=== PATIENT | female | born 1940 | race Caucasian/White ===

== ENCOUNTER 2016-12-01 07:30 | Outpatient (CLI) | payer MEDICARE, BC | END 2016-12-01 07:31 | disposition home or self-care (01) | DX: I10 Essential (primary) hypertension (principal); E55.9 Vitamin D deficiency, unspecified; K21.9 Gastro-esophageal reflux disease without esophagitis; H81.09 Meniere's disease, unspecified ear; I49.3 Ventricular premature depolarization ==

== ENCOUNTER 2017-08-09 16:48 | Outpatient (CLI) | payer MEDICARE, BC | END 2017-08-09 16:49 | disposition home or self-care (01) | LOC: LAB.R 16:48 | PROVIDERS: ATTEND Family Medicine | DX: N39.0 Urinary tract infection, site not specified (principal) | CPT/HCPCS: 87077; 87086 ==

== ENCOUNTER 2017-09-27 23:41 | Emergency (ER) | payer MEDICARE, BC ==
--- NOTE | 2017-09-28 00:09 | ED Physician Documentation ---
PD HPI ABD PAIN - Stated complaint Stated Complaint: ABD PAIN - Chief complaint Chief Complaint: Abd Pain - History obtained from History obtained from: Patient, Friend - History of Present Illness Timing - onset: Yesterday Timing - details: Gradual onset, Still present Quality: Cramping Worsened by: Eating, Position Associated symptoms: Vomiting, Diarrhea, Constipation Similar symptoms before: Work up / diagnostics, Treatment Recently seen: Clinic - Additional information Additional information: Patient is a 77 year old female who is presenting to the emergency department for abdominal discomfort. Patient states that she did not have a bowel movement today, and normally she goes twice a day. patient went to see her pmd who broke up some hard stool. Patient reports taking mag citrate, and tried to give herself an enema. Patient states that she had some liquid stools but no hard stools. patient did have a hysterectomy and and appendectomy. Review of Systems Constitutional: denies: Fever, Chills Eyes: reports: Reviewed and negative Ears: reports: Reviewed and negative Nose: reports: Reviewed and negative Throat: reports: Reviewed and negative Cardiac: denies: Chest pain / pressure, Palpitations Respiratory: denies: Dyspnea, Cough GI: reports: Abdominal Pain, Nausea, Vomiting, Constipation, Diarrhea : denies: Dysuria, Frequency Skin: denies: Rash, Lesions Immunocompromised: denies: Immunocompromised PD PAST MEDICAL HISTORY - Past Medical History Cardiovascular: Hypertension GI: GERD - Past Surgical History Past Surgical History: Yes General: Appendectomy Ortho: Shoulder arthroplasty - Present Medications Home Medications: Ambulatory Orders Medication Instructions Recorded Confirmed Cetirizine HCl [Zyrtec] 10 mg PO DAILY 06/29/13 09/28/17 Esomeprazole Magnesium [Nexium] 40 mg PO DAILY 06/29/13 09/28/17 Pramoxine HCl/Mineral Oil/Znox 28.3 gm RC Q6-8H PRN #0 oint...g. 06/29/13 [Tucks Hemorrhoidal Ointment] hydroCHLOROthiazide [Hydrodiuril] 12.5 mg PO DAILY 06/29/13 09/28/17 Clindamycin [Cleocin] 2 tab PO QID 09/28/17 09/28/17 Docusate Sodium Oral Soln [Colace] 100 mg PO BID PRN 09/28/17 09/28/17 Losartan Potassium [Cozaar] 1 tab PO DAILY 09/28/17 09/28/17 Ondansetron Odt [Zofran] 4 mg TL Q6H PRN #14 tablet 09/28/17 - Allergies Allergies/Adverse Reactions: Allergies Allergy/AdvReac Type Severity Reaction Status Date / Time Cephalosporins Allergy anaphylais Verified 06/29/13 11:55 codeine [Codeine] AdvReac altered LOC Verified 06/29/13 11:55 - Social History Does the pt smoke?: No Smoking Status: Never smoker Does the pt drink ETOH?: Yes Does the pt have substance abuse?: No PD ED PE NORMAL - Vitals Vital signs reviewed: Yes - General General: Alert and oriented X 3, No acute distress, Well developed/nourished - HEENT HEENT: Atraumatic, PERRL - Neck Neck: Supple, no meningeal sign - Cardiac Cardiac: RRR, No murmur - Respiratory Respiratory: No respiratory distress - Abdomen Abdomen: Soft, Non distended - Derm Derm: Normal color, Warm and dry - Extremities Extremities: No deformity, No edema - Neuro Neuro: Alert and oriented X 3, No motor deficit, No sensory deficit - Psych Psych: Normal mood PD ED PE EXPANDED - HEENT HEENT: Dry mucous membranes - Rectal Rectal: Hemorrhoid (multiple and extensive internal and external hemorrhoids ) Results - Vitals Vitals: Vital Signs - 24 hr 09/27/17 23:45 Temperature 36.8 C Heart Rate 89 Respiratory 18 Rate Blood Pressure 165/63 H O2 Saturation 96 Oxygen O2 Source Room air PD MEDICAL DECISION MAKING - ED course Complexity details: reviewed old records, reviewed results, re-evaluated patient , considered differential, d/w patient ED course: Patient was seen and examined at bedside. abd series was ordered. rectal exam was performed but there were no stool in the rectal vault. Patient had two episodes of emesis, and since the x-ray was inconclusive CT was ordered. Patient was treated with zofran. When patient returned from imaging the results were reviewed. Patient's findings were consistent with gastroenteritis. Patient required no further work up and was stable for discharge with outpatient follow up. Departure - Departure Disposition: 01 Home, Self Care Clinical Impression: Gastroenteritis Condition: Good Instructions: ED Gastroenteritis Viral Follow-Up: David Noriega MD [Primary Care Provider] - Within 3 Days Prescriptions: Ondansetron Odt [Zofran] 4 mg TL Q6H PRN #14 tablet PRN Reason: Nausea / Vomiting Comments: Your diagnostics today were consistent with gastroenteritis. It is normally self limited and should get better over the next few days. You should take the zofran for nausea and make sure you stay well hydrated. You should follow up with your doctor if your symptoms persist for more than the next 3-4 days.
--- NOTE | 2017-09-28 00:42 | XRAY Preliminary Report ---
Exam: XR ABDOMEN ACUTE IMPRESSION: 1. Suspect COPD without acute process seen in the chest. 2. Nonspecific air-fluid levels on the upright view, can be seen with obstruction, gastritis, and nor mal variant. 3. No gross large stool burden. [facility] SITE ID: [id number]
--- NOTE | 2017-09-28 00:49 | XRAY Report ---
EXAM: ABDOMINAL SERIES AND PA CHEST EXAM DATE: 09/28/2017 12:18 AM. CLINICAL HISTORY: Constipation, prior bowel surgeries. COMPARISON: CT 06/29/2013. TECHNIQUE: 2 views abdomen and 1 view chest. FINDINGS: CHEST: Lungs/Pleura: Large volumes. No focal opacities. No effusion or pneumothorax. Mediastinum: Within exam limitations, cardiomediastinal contour is normal. ABDOMEN: Bowel Gas Pattern: Nonspecific scattered air-fluid levels on the upright view. No definitive obstruct ion or gross bowel wall thickening. No large stool burden seen. Free Air: None. Other: Breast implants. IMPRESSION: 1. Suspect COPD without acute process seen in the chest. 2. Nonspecific air-fluid levels on the upright view, can be seen with obstruction, gastroenteritis, a nd normal variant. 3. No gross large stool burden. [facility] Referring Provider Line: [phone] SITE ID: [id number]
[2017-09-28] MEDS ORDERED: ONDANSETRON ODT 4 MG TABLET TL STA (01:37)
[2017-09-28] MEDS ORDERED: ONDANSETRON ODT 4 MG TABLET ONE (01:46)
--- NOTE | 2017-09-28 01:57 | CT Preliminary Report ---
Exam: CT ABDOMEN/PELVIS W/O IMPRESSION: 1. No renal stone disease or evidence of obstructive uropathy. 2. Findings most suggestive of a low-grade gastroenteritis. 3. Concomitant proctitis, unclear if this is related to previous constipation as per history. No sign ificant stool burden currently. No evidence of gross rectal perforation. 4. Mild colonic diverticulosis. [facility] SITE ID: [id number]
--- NOTE | 2017-09-28 02:06 | CT Report ---
EXAM: CT ABDOMEN AND PELVIS (CT KUB) EXAM DATE: 09/28/2017 01:37 AM. CLINICAL HISTORY: Constipation, vomiting, equivocal x-ray. COMPARISONS: 06/29/2013. TECHNIQUE: Routine axial helical CT imaging was performed through the abdomen and pelvis without IV c ontrast. No IV contrast per physician order. Interpreting radiologist not involved with protocoling t his study. Reconstructions: Coronal and sagittal. In accordance with CT protocol optimization, one or more of the following dose reduction techniques w ere utilized for this exam: automated exposure control, adjustment of mA and/or KV based on patient s ize, or use of iterative reconstructive technique. FINDINGS: Lung Bases: Unremarkable. Right Kidney/Ureter: No stones, hydronephrosis, or hydroureter. No perinephric fat stranding. Left Kidney/Ureter: No stones, hydronephrosis, or hydroureter. No perinephric fat stranding. Other Solid Organs: Noncontrast images of the solid organs are grossly unremarkable. Gallbladder/Bile Ducts: Unremarkable. Peritoneal Cavity: Fluid-filled nondistended small and large bowel. No gross focal abnormality seen i nvolving the small or large bowel with the exception of rectal inflammation. Perirectal edema without gross perforation seen. No evidence of bowel obstruction. No abscess seen. Mild colonic diverticulosis. Pelvic Organs: Post hysterectomy with no adnexal masses seen. The bladder appears within normal limit s. Vasculature: Unremarkable. Other: None. IMPRESSION: 1. No renal stone disease or evidence of obstructive uropathy. 2. Findings most suggestive of a low-grade gastroenteritis. 3. Concomitant proctitis, unclear if this is related to previous constipation as per history. No sign ificant stool burden currently. No evidence of gross rectal perforation. 4. Mild colonic diverticulosis. [facility] Referring Provider Line: [phone] SITE ID: [id number]
[2017-09-28 02:17] VITALS: BP 144/76
== END 2017-09-28 02:17 | disposition home or self-care (01) ==
LOC: ED 23:41
DX: K52.9 Noninfective gastroenteritis and colitis, unspecified (principal); K64.4 Residual hemorrhoidal skin tags; K64.8 Other hemorrhoids; I10 Essential (primary) hypertension
CPT/HCPCS: 74022; 74176; 99283; Q0162

== ENCOUNTER 2018-04-22 08:00 | Outpatient (CLI) | payer MEDICARE, BC ==
[2018-04-22 13:41] LABS: BASOPHILS # (AUTO) 0.1 10^3/uL (0.0-0.1); EOSINOPHILS # (AUTO) 0.1 10^3/uL (0.0-0.7); EOSINOPHILS % (AUTO) 1.1 %; HGB - HEMOGLOBIN 13.1 g/dL (12.0-16.0); LYMPHOCYTES # (AUTO) 1.6 10^3/uL (1.5-3.5); LYMPHOCYTES % (AUTO) 22.4 %; MEAN CORPUSCULAR HEMOGLOBIN 30.5 pg (27.0-31.0); MEAN CORPUSCULAR HGB CONC 33.6 g/dL (32.0-36.0); MEAN CORPUSCULAR VOLUME 90.8 fL (81.0-99.0); MEAN PLATELET VOLUME 8.3 fL (7.9-10.8); MONOCYTES # (AUTO) 0.6 10^3/uL (0.0-1.0); MONOCYTES % (AUTO) 8.9 %; NEUTROPHILS # (AUTO) 4.8 10^3/uL (1.5-6.6); NEUTROPHILS % (AUTO) 66.6 %; PLT - PLATELET COUNT 291 10^3/uL (130-450); RED BLOOD COUNT 4.31 10^6/uL (4.20-5.40); RED CELL DISTRIBUTION WIDTH 14.5 % (12.0-15.0); WHITE BLOOD COUNT 7.2 x10^3/uL (4.8-10.8)
[2018-04-22 14:01] LABS: ALBUMIN 3.9 g/dL (3.2-5.5); ALBUMIN/GLOBULIN RATIO 1.1 (1.0-2.2); ALKALINE PHOSPHATASE 93 IU/L (42-121); ALT ALANINE AMINOTRANSFERASE 14 IU/L (10-60); AST ASPARTATE AMINOTRANSFERASE 21 IU/L (10-42); BILIRUBIN,TOTAL 0.6 mg/dL (0.2-1.0); BUN - BLOOD UREA NITROGEN 14 mg/dL (6-20); CALCIUM 9.4 mg/dL (8.5-10.3); CARBON DIOXIDE - CO2 26 mmol/L (21-32); CHLORIDE 98 mmol/L (101-111); CREATININE 0.7 mg/dL (0.4-1.0); GFR - MDRD 81 (>89); GLUCOSE 96 mg/dL (70-100); SODIUM 133 mmol/L (135-145); TOTAL PROTEIN 7.6 g/dL (6.7-8.2)
[2018-04-22 14:10] LABS: CRP - C-REACTIVE PROTEIN < 1.0 mg/dL (0-1.0)
== END 2018-04-22 08:01 | disposition home or self-care (01) ==
LOC: LAB.WCP 08:00
PROVIDERS: ATTEND Family Medicine
DX: R51 Headache (principal)
CPT/HCPCS: 36415; 80053; 85025; 85651; 86140

== ENCOUNTER 2018-04-22 09:46 | Outpatient (CLI) | payer MEDICARE, BC | END 2018-04-22 09:47 | disposition home or self-care (01) | LOC: LAB.WCP 09:46 | PROVIDERS: ATTEND Family Medicine | DX: Z53.9 Procedure and treatment not carried out, unspecified reason (principal) ==

== ENCOUNTER 2018-05-14 14:49 | Outpatient (CLI) | payer MEDICARE, BC ==
--- NOTE | 2018-05-14 15:34 | CT Report ---
Procedure Date: 05/14/2018 Accession Number: [id number] / [id number] Procedure: CT - Sinuses CPT Code: FULL RESULT: EXAM: Sinuses DATE: 05/14/2018 3:03 PM CLINICAL HISTORY: FACIAL PAIN COMPARISON: None. TECHNIQUE: Routine multi-axial CT imaging performed through the sinuses. Iodinated IV contrast: None. Reconstructions: Coronal and sagittal. In accordance with CT protocol optimization, one or more of the following dose reduction techniques were utilized for this exam: automated exposure control, adjustment of mA and/or KV based on patient size, or use of iterative reconstructive technique. FINDINGS: RIGHT Frontal: Normal. Ethmoid: Normal. Maxillary: Normal. Sphenoid: Normal. Drainage Pathways: The frontal recess, ostiomeatal complex and sphenoethmoidal recess are patent and normal. LEFT Frontal: Normal. Ethmoid: Patchy mucosal thickening. Maxillary: Near complete opacification. Sphenoid: Normal. Drainage Pathways: The ostiomeatal complex is occluded by soft tissue. The frontal recess and sphenoethmoidal recess are patent. Nasal Cavity: Normal. No mass or significant anatomic abnormality evident. Osseous Structures: Normal. Orbits: Unremarkable. Other: None. IMPRESSION: Left maxillary and ethmoid chronic sinus disease. [facility]
== END 2018-05-14 14:50 | disposition home or self-care (01) ==
LOC: DI 14:49
PROVIDERS: ATTEND Family Medicine
DX: R51 Headache (principal); J32.0 Chronic maxillary sinusitis; J32.2 Chronic ethmoidal sinusitis
CPT/HCPCS: 70486

== ENCOUNTER 2018-06-11 10:20 | Outpatient (CLI) | payer MEDICARE, BC ==
[2018-06-11 18:52] LABS: BASOPHILS # (AUTO) 0.1 10^3/uL (0.0-0.1); EOSINOPHILS % (AUTO) 0.5 %; HGB - HEMOGLOBIN 13.6 g/dL (12.0-16.0); LYMPHOCYTES # (AUTO) 1.8 10^3/uL (1.5-3.5); LYMPHOCYTES % (AUTO) 24.5 %; MEAN CORPUSCULAR HEMOGLOBIN 29.9 pg (27.0-31.0); MEAN CORPUSCULAR HGB CONC 32.9 g/dL (32.0-36.0); MEAN PLATELET VOLUME 7.6 fL (7.9-10.8); MONOCYTES # (AUTO) 0.6 10^3/uL (0.0-1.0); MONOCYTES % (AUTO) 7.5 %; NEUTROPHILS # (AUTO) 4.9 10^3/uL (1.5-6.6); NEUTROPHILS % (AUTO) 66.5 %; PLT - PLATELET COUNT 377 10^3/uL (130-450); RED BLOOD COUNT 4.53 10^6/uL (4.20-5.40); RED CELL DISTRIBUTION WIDTH 14.3 % (12.0-15.0); WHITE BLOOD COUNT 7.4 x10^3/uL (4.8-10.8)
[2018-06-11 19:12] LABS: CALCIUM 9.4 mg/dL (8.5-10.3); CREATININE 0.7 mg/dL (0.4-1.0)
== END 2018-06-11 10:21 | disposition home or self-care (01) ==
LOC: LAB.WCP 10:20
PROVIDERS: ATTEND Family Medicine
DX: I10 Essential (primary) hypertension (principal); K62.5 Hemorrhage of anus and rectum
CPT/HCPCS: 36415; 80048; 85025

== ENCOUNTER 2019-01-17 17:00 | Emergency (ER) | payer MEDICARE, BC ==
--- NOTE | 2019-01-17 18:13 | XRAY Report ---
Reason: dyspnea Procedure Date: 01/17/2019 Accession Number: [id number] / [id number] Procedure: XR - Chest 2 View X-Ray CPT Code: 82207 FULL RESULT: EXAM: CHEST RADIOGRAPHY EXAM DATE: 01/17/2019 05:55 PM. CLINICAL HISTORY: Shortness of breath. COMPARISON: ABDOMEN ACUTE 09/27/2017 11:55 PM. TECHNIQUE: 2 views. FINDINGS: Lungs/Pleura: No focal opacities evident. No pleural effusion. No pneumothorax. Normal volumes. Mediastinum: Heart and mediastinal contours are unremarkable. Other: Calcified breast implants are seen in place. IMPRESSION: No acute cardiopulmonary abnormality demonstrated. [facility]
[2019-01-17] MEDS ORDERED: ALBUTEROL NEB 2.5 MG/3 ML INH STA (20:12)
[2019-01-17 20:46] LABS: BASOPHILS % (AUTO) 0.2 %; EOSINOPHILS # (AUTO) 0.1 10^3/uL (0.0-0.7); EOSINOPHILS % (AUTO) 1.6 %; LYMPHOCYTES # (AUTO) 1.9 10^3/uL (1.5-3.5); LYMPHOCYTES % (AUTO) 21.9 %; MEAN CORPUSCULAR HEMOGLOBIN 30.7 pg (27.0-31.0); MEAN CORPUSCULAR HGB CONC 34.7 g/dL (32.0-36.0); MEAN CORPUSCULAR VOLUME 88.4 fL (81.0-99.0); MEAN PLATELET VOLUME 6.8 fL (7.9-10.8); MONOCYTES # (AUTO) 0.9 10^3/uL (0.0-1.0); MONOCYTES % (AUTO) 10.5 %; NEUTROPHILS # (AUTO) 5.8 10^3/uL (1.5-6.6); NEUTROPHILS % (AUTO) 65.8 %; PLT - PLATELET COUNT 407 10^3/uL (130-450); RED BLOOD COUNT 3.92 10^6/uL (4.20-5.40); WHITE BLOOD COUNT 8.9 x10^3/uL (4.8-10.8)
[2019-01-17] MEDS ORDERED: IOPAMIDOL-300 100 ML VIAL ONE (20:59)
[2019-01-17 21:00] LABS: ALBUMIN 3.8 g/dL (3.2-5.5); BILIRUBIN,TOTAL 0.7 mg/dL (0.2-1.0); CALCIUM 8.9 mg/dL (8.5-10.3); CREATININE 0.7 mg/dL (0.4-1.0); TOTAL PROTEIN 7.7 g/dL (6.7-8.2)
--- NOTE | 2019-01-17 21:38 | CT Report ---
Reason: SOA Procedure Date: 01/17/2019 Accession Number: [id number] / [id number] Procedure: CT - ANGIO CHEST W/WO CPT Code: FULL RESULT: EXAM: CT ANGIOGRAM CHEST EXAM DATE: 01/17/2019 09:25 PM. CLINICAL HISTORY: Shortness of breath for 2 days. COMPARISON: None. TECHNIQUE: Routine helical imaging was performed through the chest in the pulmonary arterial phase. IV Contrast: 65 cc of Isovue 300. Reconstructions: Coronal 3-D MIP reconstructions.Sagittal and coronal. In accordance with CT protocol optimization, one or more of the following dose reduction techniques were utilized for this exam: automated exposure control, adjustment of mA and/or KV based on patient size, or use of iterative reconstructive technique. FINDINGS: Pulmonary Arteries: Diagnostic quality: Adequate through the segmental arteries. No evidence for acute or chronic pulmonary emboli. RV/LV is within normal limits. There is no interventricular septal bowing. There is no reflux of contrast material in the IVC. Lungs/Pleura: Mild scarring in the apices. No consolidation, nodules, or edema. No effusions or pneumothorax. Mediastinum: Mild aortic and coronary artery calcification. No cardiac enlargement or adenopathy. Thoracic Aorta: Unremarkable. Upper Abdomen: Unremarkable. Other: None. IMPRESSION: 1. No pulmonary emboli. 2. No aortic aneurysm or dissection. 3. Clear lungs. [facility]
[2019-01-17] MEDS ORDERED: IOPAMIDOL-300 100 ML VIAL IVP ONE (21:45)
--- NOTE | 2019-01-17 22:05 | ED Physician Documentation ---
History of Present Illness - Stated complaint Stated Complaint: SOA - Chief complaint Chief Complaint: General - Additonal information Additional information: 78-year-old female presents emergency department with ongoing shortness of breath. The patient reports not been able to take a deep breath in and feels short of breath. The patient denies peripheral edema, chest pain, URI symptoms, fevers or chills. The patient has been experiencing musculoskeletal back pain was started on Flexeril by her primary care. The patient denies abdominal pain, dysuria, hematuria, fever, saddle anesthesia or motor or sensory changes. Symptoms are described as moderate. No triggering factors. No relieving factors. Review of Systems Constitutional: denies: Fever, Chills Eyes: denies: Discharge Ears: denies: Ear pain Nose: denies: Congestion Throat: denies: Sore throat Cardiac: denies: Chest pain / pressure Respiratory: reports: Dyspnea. denies: Cough, Hemoptysis GI: denies: Abdominal Pain : denies: Dysuria, Incontinent, Hematuria Musculoskeletal: denies: Extremity swelling Neurologic: denies: Focal weakness, Numbness, Difficulty speaking PD PAST MEDICAL HISTORY - Past Medical History Past Medical History: Yes Cardiovascular: Hypertension Respiratory: None Neuro: None Endocrine/Autoimmune: None GI: GERD CREDIT REPORT CHECKER: None : None HEENT: None Psych: None Musculoskeletal: None Derm: None - Past Surgical History Past Surgical History: Yes General: Appendectomy Ortho: Shoulder arthroplasty /CREDIT REPORT CHECKER: 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 - Present Medications Home Medications: Ambulatory Orders Medication Instructions Recorded Confirmed Cetirizine HCl [Zyrtec] 10 mg PO DAILY 06/29/13 09/28/17 Esomeprazole Magnesium [Nexium] 40 mg PO DAILY 06/29/13 09/28/17 Pramoxine HCl/Mineral Oil/Znox 28.3 gm RC Q6-8H PRN #0 oint...g. 06/29/13 09/28/17 [Tucks Hemorrhoidal Ointment] hydroCHLOROthiazide [Hydrodiuril] 12.5 mg PO DAILY 06/29/13 09/28/17 Clindamycin [Cleocin] 2 tab PO QID 09/28/17 09/28/17 Docusate Sodium Oral Soln [Colace] 100 mg PO BID PRN 09/28/17 09/28/17 Losartan Potassium [Cozaar] 1 tab PO DAILY 09/28/17 09/28/17 Ondansetron Odt [Zofran] 4 mg TL Q6H PRN #14 tablet 09/28/17 - Allergies Allergies/Adverse Reactions: Allergies Allergy/AdvReac Type Severity Reaction Status Date / Time Cephalosporins Allergy anaphylais Verified 01/17/19 17:14 codeine [Codeine] AdvReac altered LOC Verified 01/17/19 17:14 - Social History Does the pt smoke?: No Smoking Status: Never smoker Does the pt drink ETOH?: Yes Does the pt have substance abuse?: No - Immunizations Immunizations are current?: Yes - POLST Patient has POLST: No PD ED PE NORMAL - General General: Alert and oriented X 3, No acute distress - HEENT HEENT: Atraumatic, PERRL, EOMI, Ears normal - Neck Neck: Supple, no meningeal sign - Cardiac Cardiac: RRR, Strong equal pulses - Respiratory Respiratory: No respiratory distress, Clear bilaterally - Abdomen Abdomen: Soft, Non tender - Derm Derm: Normal color - Extremities Extremities: No deformity, Normal ROM s pain - Neuro Neuro: Alert and oriented X 3, Normal speech - Psych Psych: Normal affect Results - Vitals Vitals: Vital Signs - 24 hr 01/17/19 01/17/19 01/17/19 17:11 17:34 19:33 Temperature 37.1 C 36.6 C Heart Rate 87 80 Respiratory 20 18 Rate Blood Pressure 149/77 H 135/60 H O2 Saturation 98 99 01/17/19 01/17/19 01/17/19 20:41 20:50 21:05 Temperature 36.8 C Heart Rate 77 79 82 Respiratory 17 13 16 Rate Blood Pressure 162/76 H 152/67 H O2 Saturation 99 152 H Oxygen O2 Source Room air - EKG (time done) 20:21 Rate: Rate (enter#) Rhythm: NSR Intervals: Normal WA, QRS normal QRS: Normal Ischemia: Normal ST segments - Labs Labs: Laboratory Tests 01/17/19 01/17/19 01/17/19 20:35 20:35 20:35 WBC 8.9 RBC 3.92 L Hgb 12.0 Hct 34.6 L MCV 88.4 MCH 30.7 MCHC 34.7 RDW 14.0 Plt Count 407 MPV 6.8 L Neut # (Auto) 5.8 Lymph # (Auto) 1.9 Dubois # (Auto) 0.9 Eos # (Auto) 0.1 Baso # (Auto) 0.0 Absolute Nucleated RBC 0.00 Nucleated RBC % 0.0 Sodium 126 L Potassium 3.6 Chloride 91 L Carbon Dioxide 24 Anion Gap 11.0 BUN 11 Creatinine 0.7 Estimated GFR (MDRD) 81 L Glucose 98 Calcium 8.9 Total Bilirubin 0.7 AST 29 ALT 20 Alkaline Phosphatase 132 H Troponin I < 0.04 B-Natriuretic Peptide Total Protein 7.7 Albumin 3.8 Globulin 3.9 Albumin/Globulin Ratio 1.0 Lipase 39 01/17/19 20:35 WBC RBC Hgb Hct MCV MCH MCHC RDW Plt Count MPV Neut # (Auto) Lymph # (Auto) Dubois # (Auto) Eos # (Auto) Baso # (Auto) Absolute Nucleated RBC Nucleated RBC % Sodium Potassium Chloride Carbon Dioxide Anion Gap BUN Creatinine Estimated GFR (MDRD) Glucose Calcium Total Bilirubin AST ALT Alkaline Phosphatase Troponin I B-Natriuretic Peptide 80 Total Protein Albumin Globulin Albumin/Globulin Ratio Lipase - Rads (name of study) CTA chest Radiology: Final report received, See rad report (1. No pulmonary emboli. 2. No aortic aneurysm or dissection. 3. Clear lungs. ) CXR Radiology: Final report received, See rad report (IMPRESSION: No acute cardiopulmonary abnormality demonstrated. ) PD MEDICAL DECISION MAKING - ED course ED course: The patient's workup does not reveal a clear etiology for the source of her symptoms. Presently, the patient appears appropriate for discharge with ongoing outpatient management. The findings and plan were discussed the patient who understands and agrees. I discussed warning signs and recommended returning to the emergency department for any worsening or any concerns Departure - Departure Disposition: 01 Home, Self Care Clinical Impression: Dyspnea Qualifiers: Dyspnea type: unspecified Qualified Code(s): R06.00 - Dyspnea, unspecified Condition: Good Instructions: ED Dyspnea Shortness of Breath Comments: Please return to the emergency department for worsening symptoms or any concerns
[2019-01-17 22:49] VITALS: BP 133/78
== END 2019-01-17 22:40 | disposition home or self-care (01) ==
LOC: ED 17:00
DX: R06.00 Dyspnea, unspecified (principal); I10 Essential (primary) hypertension
CPT/HCPCS: 36415; 71046; 71275; 80053; 83690; 83880; 84484; 85025; 93005; 94640; 94664; 99283; 99284; Q9967

== ENCOUNTER 2019-01-21 10:28 | Outpatient (CLI) | payer MEDICARE, BC ==
--- NOTE | 2019-01-21 12:13 | XRAY Report ---
Reason: LUMBAR RADICULOPATHY Procedure Date: 01/21/2019 Accession Number: [id number] / [id number] Procedure: WCP - Lumbar Spine 2 View CPT Code: FULL RESULT: EXAM: LUMBOSACRAL SPINE RADIOGRAPHY EXAM DATE: 01/21/2019 10:45 AM. CLINICAL HISTORY: Lumbar radiculopathy. COMPARISONS: XR LUMBOSACRAL SPINE 4 VIEWS 06/20/2012 7:23 AM. TECHNIQUE: 2 views. FINDINGS: Alignment: There is a few degrees of levo-scoliotic curvature of the lumbar spine apex L3-L4. No anterolisthesis. Bones: Five [id number] lumbar vertebral bodies are present. No fractures or bone lesions. Disks: Interval development of mild degenerative disk space narrowing at L3-L4 and L5-S1 with mild anterior osteophyte. Facets: No degenerative changes. Sacroiliac Joints: Unremarkable. Soft Tissues: Normal. The visualized bowel gas pattern is normal. IMPRESSION: Mild degenerative disk changes as described. No fracture appreciated. [facility]
== END 2019-01-21 10:29 | disposition home or self-care (01) ==
LOC: DI.WCP 10:28
PROVIDERS: ATTEND Family Medicine
DX: M51.36 Other intervertebral disc degeneration, lumbar region (principal); M51.37 Other intervertebral disc degeneration, lumbosacral region
CPT/HCPCS: 72100

== ENCOUNTER 2019-02-25 10:57 | Outpatient (CLI) | payer MEDICARE, BC ==
--- NOTE | 2019-02-25 11:27 | XRAY Report ---
Reason: ANKLE PAIN,BILATERAL Procedure Date: 02/25/2019 Accession Number: [id number] / [id number] Procedure: WCP - Ankle 3 View BILAT CPT Code: FULL RESULT: EXAMS: 1. Right Ankle Radiography 2. Left Ankle Radiography EXAM DATE: 02/25/2019 11:19 AM. CLINICAL HISTORY: ANKLE Pain, bilateral. COMPARISON: None. TECHNIQUE: 3 views each ankle. FINDINGS: Right Ankle: Bones: Normal. No fractures or bone lesions. Joints: Normal. No effusion. No subluxations. The ankle mortise is normally aligned. Soft Tissues: Normal. No soft tissue swelling. Left Ankle: Bones: Normal. No fractures or bone lesions. Joints: Normal. No effusion. No subluxations. The ankle mortise is normally aligned. Soft Tissues: Normal. No soft tissue swelling. IMPRESSION: Normal bilateral ankle radiography. [facility]
== END 2019-02-25 10:58 | disposition home or self-care (01) ==
LOC: DI.WCP 10:57
PROVIDERS: ATTEND Family Medicine
DX: M25.571 Pain in right ankle and joints of right foot (principal); M25.572 Pain in left ankle and joints of left foot

== ENCOUNTER 2019-02-27 08:00 | Outpatient (CLI) | payer MEDICARE, BC | END 2019-02-27 23:59 | disposition home or self-care (01) | LOC: LAB.WCP 08:00 | PROVIDERS: ATTEND Family Medicine | DX: M25.571 Pain in right ankle and joints of right foot (principal); M25.572 Pain in left ankle and joints of left foot | CPT/HCPCS: 36415; 84550 ==

== ENCOUNTER 2019-03-04 08:00 | Outpatient (CLI) | payer MEDICARE, BC | END 2019-03-04 08:01 | disposition home or self-care (01) | LOC: LAB.R 08:00 | PROVIDERS: ATTEND Family Medicine | DX: R30.0 Dysuria (principal) | CPT/HCPCS: 87077; 87086; 87181 ==

== ENCOUNTER 2019-03-18 16:27 | Outpatient (CLI) | payer MEDICARE, BC ==
[2019-03-18] MEDS ORDERED: GADOBUTROL 7.5 MMOL/7.5 ML VIAL ONE (17:31)
[2019-03-18] MEDS ORDERED: GADOBUTROL 7.5 MMOL/7.5 ML VIAL IVP ONE (17:45)
--- NOTE | 2019-03-19 07:55 | MRI Report ---
Reason: APHASIA Procedure Date: 03/18/2019 Accession Number: [id number] / [id number] Procedure: MRI - Brain W/WO CPT Code: FULL RESULT: EXAM: MRI BRAIN WITHOUT AND WITH CONTRAST EXAM DATE: 03/18/2019 05:35 PM. CLINICAL HISTORY: 78-year-old woman with aphasia. COMPARISON: None. TECHNIQUE: Multiplanar, multisequence T1-weighted and fluid-sensitive MR sequences of the brain were performed. Sequences optimized for routine evaluation. Other: None. IV Contrast: 7.5 cc Gadavist. FINDINGS: Parenchyma: No evidence of acute infarct on diffusion weighted sequence. The parenchyma demonstrates mild burden of nonspecific FLAIR hyperintensities in the periventricular and deep cerebral white matter, less than commonly seen in this age group. No evidence of prior hemorrhage on susceptibility weighted sequence. No abnormal enhancement. Pituitary: Unremarkable. Ventricles and Extra-axial Spaces: Ventricles are symmetric and normal in size for age. Extra-axial spaces are unremarkable. No abnormal enhancement. Orbits: Unremarkable. Sinuses: Mucous retention cyst is present in the left frontal sinus. Mastoid air cells are clear. Major Vascular Flow Voids: Intact. Dural Venous Sinuses and Major Central Veins: Patent on post-contrast images. IMPRESSION: 1. No acute intracranial abnormality. Specifically, no evidence of acute infarct, hemorrhage, or mass lesion. 2. Mild white matter changes, less than commonly seen in this age group. [facility]
== END 2019-03-18 16:28 | disposition home or self-care (01) ==
LOC: DI 16:27
PROVIDERS: ATTEND Family Medicine
DX: R47.01 Aphasia (principal)
CPT/HCPCS: 70553; A9585

== ENCOUNTER 2019-06-30 08:00 | Outpatient (CLI) | payer MEDICARE, BC | END 2019-06-30 23:59 | disposition home or self-care (01) | LOC: LAB.WCP 08:00 | PROVIDERS: ATTEND Family Medicine | DX: R35.0 Frequency of micturition (principal) | CPT/HCPCS: 87086 ==

== ENCOUNTER 2020-01-14 16:30 | Outpatient (CLI) | payer MEDICARE, BC | END 2020-01-14 23:59 | disposition home or self-care (01) | LOC: LAB.R 16:30 | PROVIDERS: ATTEND Podiatrist | DX: L03.032 Cellulitis of left toe (principal) | CPT/HCPCS: 87070; 87205 ==

== ENCOUNTER 2020-12-01 08:00 | Outpatient (CLI) | payer MEDICARE, BC ==
[2020-12-01 12:37] LABS: ALBUMIN 4.6 g/dL (3.2-5.5); ALBUMIN/GLOBULIN RATIO 1.4 (1.0-2.2); ALKALINE PHOSPHATASE 93 IU/L (42-121); ALT ALANINE AMINOTRANSFERASE 20 IU/L (10-60); AST ASPARTATE AMINOTRANSFERASE 27 IU/L (10-42); BILIRUBIN,TOTAL 0.9 mg/dL (0.2-1.0); BUN - BLOOD UREA NITROGEN 15 mg/dL (6-20); CALCIUM 9.6 mg/dL (8.5-10.3); CARBON DIOXIDE - CO2 27 mmol/L (21-32); CHLORIDE 99 mmol/L (101-111); CHOL/HDL RATIO 1.9 (<4.4); CHOLESTEROL 169 mg/dL; CREATININE 0.8 mg/dL (0.4-1.0); GLUCOSE 83 mg/dL (70-100); HDL CHOLESTEROL 88 mg/dL; LDL CHOLESTEROL,CALCULATED 64 mg/dL; LDL/HDL RATIO 0.7 (<4.4); TOTAL PROTEIN 7.9 g/dL (6.7-8.2); VLDL CHOLESTEROL 17 mg/dL
[2020-12-01 12:52] LABS: BASOPHILS # (AUTO) 0.1 10^3/uL (0.0-0.1); BASOPHILS % (AUTO) 0.7 %; EOSINOPHILS # (AUTO) 0.5 10^3/uL (0.0-0.7); EOSINOPHILS % (AUTO) 6.9 %; HGB - HEMOGLOBIN 13.7 g/dL (12.0-16.0); LYMPHOCYTES # (AUTO) 1.5 10^3/uL (1.5-3.5); LYMPHOCYTES % (AUTO) 21.2 %; MEAN CORPUSCULAR HEMOGLOBIN 30.1 pg (27.0-31.0); MEAN CORPUSCULAR HGB CONC 32.6 g/dL (32.0-36.0); MEAN CORPUSCULAR VOLUME 92.3 fL (81.0-99.0); MONOCYTES # (AUTO) 0.7 10^3/uL (0.0-1.0); MONOCYTES % (AUTO) 9.5 %; NEUTROPHILS # (AUTO) 4.3 10^3/uL (1.5-6.6); NEUTROPHILS % (AUTO) 61.3 %; PLT - PLATELET COUNT 298 10^3/uL (130-450); RED BLOOD COUNT 4.55 10^6/uL (4.20-5.40); WHITE BLOOD COUNT 7.1 x10^3/uL (4.8-10.8)
== END 2020-12-01 23:59 | disposition home or self-care (01) ==
LOC: LAB.WCP 08:00
PROVIDERS: ATTEND Family Medicine
DX: I10 Essential (primary) hypertension (principal); E87.1 Hypo-osmolality and hyponatremia
CPT/HCPCS: 36415; 80053; 80061; 83721; 83930; 84300; 85025

== ENCOUNTER 2020-12-31 17:09 | Outpatient (CLI) | payer MEDICARE, BC ==
[2020-12-31 21:04] LABS: CALCIUM 9.8 mg/dL (8.5-10.3); CREATININE 0.9 mg/dL (0.4-1.0)
== END 2020-12-31 23:59 | disposition home or self-care (01) ==
LOC: LAB.N 17:09
PROVIDERS: ATTEND Family Medicine
DX: E87.6 Hypokalemia (principal); N39.0 Urinary tract infection, site not specified
CPT/HCPCS: 36415; 80048; 87077; 87086; 87181

== ENCOUNTER 2021-02-11 12:40 | Outpatient (CLI) | payer MEDICARE, BC ==
--- NOTE | 2021-02-11 15:23 | DEXA Report ---
PROCEDURE: Dexa Spine and/or Hip INDICATIONS: POST MENOPAUSAL TECHNIQUE: Dual energy x-ray absorptiometry (DXA) was performed on a [facility]. Regions measur ed are the AP Spine, femoral neck, and if needed forearm. COMPARISON: None. FINDINGS: Lumbar Spine: Bone Mineral Density 1.296 g/cm/cm,T score 1.0, normal Left Hip: Bone Mineral Density 0.954 g/cm/cm,T score -0.4, normal Left Femoral Neck: Bone Mineral Density 0.846 g/cm/cm, T score -1.4, osteopenia (T score greater or equal to -1.0: NORMAL) (T score from -1.1 to -2.4: OSTEOPENIA) (T score less than or equal to -2.5 to: OSTEOPOROSIS) Impression: Osteopenia. Patients with diagnosis of osteoporosis or osteopenia should have regular bone mineral density assess ment. For those eligible for Medicare, routine testing is allowed once every 2 years. Testing frequ ency can be increased for patients who have rapidly progressing disease or for those who are receivin g medical therapy to restore bone mass. Reviewed by: Marce Shoemaker MD, PhD on 02/11/2021 3:21 PM PDT Approved by: Marce Shoemaker MD, PhD on 02/11/2021 3:21 PM PDT Station ID: [id number]
== END 2021-02-11 12:41 | disposition home or self-care (01) ==
LOC: DI 12:40
PROVIDERS: ATTEND Family Medicine
DX: M85.88 Other specified disorders of bone density and structure, other site (principal); Z78.0 Asymptomatic menopausal state

== ENCOUNTER 2021-03-07 07:00 | Outpatient (CLI) | payer MEDICARE, BC ==
--- NOTE | 2021-03-07 16:02 | XRAY Report ---
PROCEDURE: Knee 3 View RT INDICATIONS: ARTHRITIS, R KNEE TECHNIQUE: 3 views of the right knee(s) were acquired. COMPARISON: None. FINDINGS: Bones: No fractures or dislocations. No suspicious bony lesions. Mild periarticular osteophyte form ation, indicating osteoarthritis. Soft tissues: No joint effusion. No suspicious soft tissue calcifications. IMPRESSION: Mild osteoarthritis. No acute fracture. No osseous lesion. If symptoms and/or clinical s uspicion for pathology continue, further assessment with repeat plain films, or advanced imaging (e.g ., CT, MRI, or bone scan) is recommended for further assessment. Reviewed by: Ronny Guajardo MD on 03/07/2021 4:01 PM PDT Approved by: Ronny Guajardo MD on 03/07/2021 4:01 PM PDT Station ID: [id number]
== END 2021-03-07 23:59 | disposition home or self-care (01) ==
LOC: DI.N 07:00
PROVIDERS: ATTEND Family Medicine
DX: M17.11 Unilateral primary osteoarthritis, right knee (principal)

== ENCOUNTER 2021-05-25 21:35 | Outpatient (CLI) | payer MEDICARE, BC | END 2021-05-25 21:36 | disposition critical access hospital (66) | LOC: EMS 21:35 | DX: R51.9 Headache, unspecified (principal); I10 Essential (primary) hypertension | CPT/HCPCS: A0425; A0429 ==

== ENCOUNTER 2021-05-25 21:50 | Emergency (ER) | payer MEDICARE, BC ==
--- NOTE | 2021-05-25 21:52 | ED Physician Documentation ---
History of Present Illness - Stated complaint Stated Complaint: AGUIRRE/HIGH BP...FORGOT TO TAKE MEDS YESTERDAY - History obtained from History obtained from: Patient, EMS - History of Present Illness Timing: Today Pain level now: 5 Improved by: nothing Worsened by: no exacerbating factors - Additonal information Additional information: BIBA. Patient c/o generalized headache "all day". She took her regular prescribed medications this morning but realized she had forgotten to take her medications yesterday. Tonight she noticed she had a flushed appearance in her bathroom mirror and, with the headache and having forgotten to take her medications yesterday, it occurred to her to check her blood pressure. She found it to be 199/102. She took a half-dose of her losartan and then called 911. Review of Systems Constitutional: denies: Fever, Chills, Sweats Eyes: reports: Reviewed and negative Cardiac: reports: Reviewed and negative Respiratory: reports: Reviewed and negative GI: reports: Reviewed and negative Musculoskeletal: reports: Reviewed and negative Neurologic: reports: Headache. denies: Generalized weakness, Focal weakness, Numbness PD PAST MEDICAL HISTORY - Past Medical History Past Medical History: Yes Cardiovascular: Hypertension GI: GERD - Present Medications Home Medications: Ambulatory Orders Medication Instructions Recorded Confirmed Cetirizine HCl [Zyrtec] 10 mg PO DAILY 06/29/13 05/25/21 Esomeprazole Magnesium [Nexium] 40 mg PO DAILY 06/29/13 05/25/21 Pramoxine HCl/Mineral Oil/Znox 28.3 gm RC Q6-8H PRN #0 oint...g. 06/29/13 05/25/21 [Tucks Hemorrhoidal Ointment] hydroCHLOROthiazide [Hydrodiuril] 12.5 mg PO DAILY 06/29/13 05/25/21 Clindamycin [Cleocin] 2 tab PO QID 09/28/17 05/25/21 Docusate Sodium Oral Soln [Colace] 100 mg PO BID PRN 09/28/17 05/25/21 Losartan Potassium [Cozaar] 1 tab PO DAILY 09/28/17 05/25/21 Ondansetron Odt [Zofran] 4 mg TL Q6H PRN #14 tablet 09/28/17 05/25/21 - Allergies Allergies/Adverse Reactions: Allergies Allergy/AdvReac Type Severity Reaction Status Date / Time Cephalosporins Allergy anaphylais Verified 05/25/21 21:52 codeine [Codeine] AdvReac altered LOC Verified 05/25/21 21:52 PD ED PE NORMAL - Vitals Vital signs reviewed: Yes - General General: Alert and oriented X 3, No acute distress, Well developed/nourished - HEENT HEENT: PERRL, EOMI, Moist mucous membranes - Neck Neck: Supple, no meningeal sign - Cardiac Cardiac: RRR, No murmur, No gallop, No rub - Respiratory Respiratory: No respiratory distress, Clear bilaterally - Neuro Neuro: Alert and oriented X 3 Results - Vitals Vitals: Vital Signs - 24 hr 05/25/21 05/25/21 05/25/21 21:52 21:55 22:08 Temperature 36.4 C L 36.4 C L Heart Rate 97 94 86 Respiratory 16 19 17 Rate Blood Pressure 182/96 H 182/96 H 178/83 H O2 Saturation 100 100 97 05/26/21 05/26/21 00:00 00:51 Temperature 36.5 C 36.5 C Heart Rate 81 79 Respiratory 13 16 Rate Blood Pressure 161/71 H 169/70 H O2 Saturation 100 100 Oxygen O2 Source Room air - Labs Labs: Laboratory Tests 05/25/21 05/25/21 22:13 22:13 WBC 6.3 RBC 4.05 L Hgb 11.8 L Hct 35.4 L MCV 87.4 MCH 29.1 MCHC 33.3 RDW 15.0 Plt Count 216 MPV 8.4 Neut # (Auto) 4.1 Lymph # (Auto) 1.5 [place] # (Auto) 0.6 Eos # (Auto) 0.1 Baso # (Auto) 0.0 Absolute Nucleated RBC 0.00 Nucleated RBC % 0.0 Sodium 133 L Potassium 3.7 Chloride 98 L Carbon Dioxide 25 Anion Gap 10.0 BUN 16 Creatinine 0.8 Estimated GFR (MDRD) 69 L Glucose 101 H Calcium 8.9 PD MEDICAL DECISION MAKING - ED course Complexity details: reviewed results, re-evaluated patient, considered differential, d/w patient ED course: Reassuring blood tests, and patient reports significant improvement in AGUIRRE after ibuprofen. Without other specific intervention, her blood pressure trended down to 160s/70s and she is discharged in NAD. Instructed to return if worse, check her BP 2-3 times per day, and follow up with her doctor Departure - Departure Disposition: Home, Self Care Clinical Impression: Hypertension Qualifiers: Hypertension type: primary hypertension Qualified Code(s): I10 - Essential (primary) hypertension Condition: Good Instructions: ED Hypertension Conf Out Of Control Follow-Up: Pankaj Valenzuela DO [Primary Care Provider] - Within 1 week Discharge Date/Time: 05/26/21 00:51
[2021-05-25 22:17] LABS: BASOPHILS % (AUTO) 0.3 %; EOSINOPHILS # (AUTO) 0.1 10^3/uL (0.0-0.7); EOSINOPHILS % (AUTO) 1.4 %; HCT - HEMATOCRIT 35.4 % (37.0-47.0); HGB - HEMOGLOBIN 11.8 g/dL (12.0-16.0); LYMPHOCYTES # (AUTO) 1.5 10^3/uL (1.5-3.5); LYMPHOCYTES % (AUTO) 23.8 %; MEAN CORPUSCULAR HEMOGLOBIN 29.1 pg (27.0-31.0); MEAN CORPUSCULAR HGB CONC 33.3 g/dL (32.0-36.0); MEAN CORPUSCULAR VOLUME 87.4 fL (81.0-99.0); MEAN PLATELET VOLUME 8.4 fL (7.9-10.8); MONOCYTES # (AUTO) 0.6 10^3/uL (0.0-1.0); MONOCYTES % (AUTO) 8.7 %; NEUTROPHILS # (AUTO) 4.1 10^3/uL (1.5-6.6); NEUTROPHILS % (AUTO) 65.5 %; PLT - PLATELET COUNT 216 10^3/uL (130-450); RED BLOOD COUNT 4.05 10^6/uL (4.20-5.40); WHITE BLOOD COUNT 6.3 x10^3/uL (4.8-10.8)
[2021-05-25 22:27] LABS: CALCIUM 8.9 mg/dL (8.5-10.3); CREATININE 0.8 mg/dL (0.4-1.0); POTASSIUM 3.7 mmol/L (3.5-5.0)
[2021-05-25] MEDS ORDERED: IBUPROFEN 600 MG TABLET PO STA (22:31)
[2021-05-26 00:54] VITALS: BP 169/70
== END 2021-05-26 00:51 | disposition home or self-care (01) ==
LOC: EDUNIT# → ED 21:50
DX: I10 Essential (primary) hypertension (principal); R51.9 Headache, unspecified; Z91.14 Patient's other noncompliance with medication regimen
CPT/HCPCS: 36415; 80048; 85025; 99283; A9270

== ENCOUNTER 2021-05-27 19:17 | Emergency (ER) | payer MEDICARE, BC ==
[2021-05-27 20:54] LABS: BASOPHILS % (AUTO) 0.4 %; EOSINOPHILS # (AUTO) 0.1 10^3/uL (0.0-0.7); EOSINOPHILS % (AUTO) 1.1 %; HCT - HEMATOCRIT 37.4 % (37.0-47.0); HGB - HEMOGLOBIN 12.4 g/dL (12.0-16.0); LYMPHOCYTES # (AUTO) 1.6 10^3/uL (1.5-3.5); MEAN CORPUSCULAR HEMOGLOBIN 28.9 pg (27.0-31.0); MEAN CORPUSCULAR HGB CONC 33.2 g/dL (32.0-36.0); MEAN CORPUSCULAR VOLUME 87.2 fL (81.0-99.0); MEAN PLATELET VOLUME 9.1 fL (7.9-10.8); MONOCYTES # (AUTO) 0.7 10^3/uL (0.0-1.0); MONOCYTES % (AUTO) 9.7 %; NEUTROPHILS # (AUTO) 5.1 10^3/uL (1.5-6.6); NEUTROPHILS % (AUTO) 67.7 %; PLT - PLATELET COUNT 282 10^3/uL (130-450); RED BLOOD COUNT 4.29 10^6/uL (4.20-5.40); RED CELL DISTRIBUTION WIDTH 14.8 % (12.0-15.0); WHITE BLOOD COUNT 7.5 x10^3/uL (4.8-10.8)
[2021-05-27 21:00] LABS: BILIRUBIN,URINE NEGATIVE (NEGATIVE); GLUCOSE, URINE (UA) NEGATIVE (NEGATIVE); KETONES,URINE (UA) NEGATIVE (NEGATIVE); LEUKOCYTE ESTERASE, URINE TRACE (NEGATIVE); NITRITE,URINE NEGATIVE (NEGATIVE); OCCULT BLOOD,URINE SMALL (NEGATIVE); PROTEIN,URINE NEGATIVE (NEGATIVE); UROBILINOGEN,URINE 0.2 (NORMAL) E.U./dL (NORMAL)
[2021-05-27 21:01] LABS: CLARITY,URINE CLEAR (CLEAR)
[2021-05-27 21:08] LABS: ALBUMIN 4.5 g/dL (3.2-5.5); ALBUMIN/GLOBULIN RATIO 1.2 (1.0-2.2); BILIRUBIN,TOTAL 0.7 mg/dL (0.2-1.0); CALCIUM 9.4 mg/dL (8.5-10.3); POTASSIUM 3.6 mmol/L (3.5-5.0); TOTAL PROTEIN 8.2 g/dL (6.7-8.2)
[2021-05-27 21:09] LABS: BACTERIA,URINE Few /HPF (None Seen); MUCUS,URINE Few Strands; RBC,URINE 0-5 /HPF (0-5); SQUAMOUS EPITHELIAL CELL,UR FEW Squamous (<= Few)
--- NOTE | 2021-05-27 21:16 | ED Physician Documentation ---
History of Present Illness - Stated complaint Stated Complaint: HIGH BP - Chief complaint Chief Complaint: General - History obtained from History obtained from: Patient, Friend - History of Present Illness Timing: How many days ago (4) - Additonal information Additional information: 81-year-old female with a history of hypertension developed symptoms 4 days ago of a headache and did not feel well she checked her blood pressure found was elevated took blood pressure medication went to the emergency department. Her blood pressure was elevated when she arrived here and improved during her visit. She does subsequently had a follow-up with her primary care doctor and she has been checking her blood pressure frequently and had found tonight is is elevated again and she has taken additional losartin. Review of Systems Constitutional: denies: Fever Eyes: denies: Decreased vision Ears: denies: Ear pain Nose: denies: Congestion Throat: denies: Sore throat Cardiac: denies: Chest pain / pressure, Palpitations Respiratory: denies: Dyspnea, Cough GI: denies: Abdominal Pain, Nausea, Vomiting, Constipation, Diarrhea : denies: Dysuria, Frequency Skin: denies: Rash Musculoskeletal: denies: Neck pain, Back pain, Extremity pain Neurologic: reports: Headache (resolved 2 nights ago.). 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 06/29/13 05/25/21 [Tucks Hemorrhoidal Ointment] hydroCHLOROthiazide [Hydrodiuril] 12.5 mg PO DAILY 06/29/13 05/25/21 Clindamycin [Cleocin] 2 tab PO QID 09/28/17 05/25/21 Docusate Sodium Oral Soln [Colace] 100 mg PO BID PRN 09/28/17 05/25/21 Losartan Potassium [Cozaar] 1 tab PO DAILY 09/28/17 05/25/21 Ondansetron Odt [Zofran] 4 mg TL Q6H PRN #14 tablet 09/28/17 05/25/21 - Allergies Allergies/Adverse Reactions: Allergies Allergy/AdvReac Type Severity Reaction Status Date / Time Cephalosporins Allergy anaphylais Verified 05/27/21 19:30 codeine [Codeine] AdvReac altered LOC Verified 05/27/21 19:30 - Social History Does the pt smoke?: No Smoking Status: Never smoker Does the pt drink ETOH?: Yes Does the pt have substance abuse?: No - Immunizations Immunizations are current?: Yes - POLST Patient has POLST: No PD ED PE NORMAL - Vitals Vital signs reviewed: Yes (hypertensive ) - General General: Alert and oriented X 3, No acute distress, Well developed/nourished - HEENT HEENT: Atraumatic, PERRL, EOMI - Neck Neck: Supple, no meningeal sign, No bony TTP - Cardiac Cardiac: RRR, No murmur - Respiratory Respiratory: No respiratory distress, Clear bilaterally - Abdomen Abdomen: Soft, Non tender - Back Back: No CVA TTP, No spinal TTP - Derm Derm: Normal color, Warm and dry, No rash - Extremities Extremities: No deformity, No edema - Neuro Neuro: Alert and oriented X 3, coating 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-12 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, No motor deficit, No sensory deficit, Normal speech Eye Opening: Spontaneous Motor: Obeys Commands Verbal: Oriented GCS Score: 15 - Psych Psych: Normal mood, Normal affect Results - Vitals Vitals: Vital Signs - 24 hr 05/27/21 19:25 Temperature 36.1 C L Heart Rate 87 Respiratory 16 Rate Blood Pressure 154/99 H O2 Saturation 98 Oxygen O2 Source Room air - Labs Labs: Laboratory Tests 05/27/21 05/27/21 05/27/21 20:46 20:50 20:50 WBC 7.5 RBC 4.29 Hgb 12.4 Hct 37.4 MCV 87.2 MCH 28.9 MCHC 33.2 RDW 14.8 Plt Count 282 MPV 9.1 Neut # (Auto) 5.1 Lymph # (Auto) 1.6 [place] # (Auto) 0.7 Eos # (Auto) 0.1 Baso # (Auto) 0.0 Absolute Nucleated RBC 0.00 Nucleated RBC % 0.0 Sodium 134 L Potassium 3.6 Chloride 100 L Carbon Dioxide 24 Anion Gap 10.0 BUN 14 Creatinine 1.0 Estimated GFR (MDRD) 53 L Glucose 97 Calcium 9.4 Total Bilirubin 0.7 AST 30 ALT 21 Alkaline Phosphatase 104 Total Protein 8.2 Albumin 4.5 Globulin 3.7 Albumin/Globulin Ratio 1.2 Lipase 36 Urine Color YELLOW Urine Clarity CLEAR Urine pH 7.0 Ur Specific [place] 1.015 Urine Protein NEGATIVE Urine Glucose (UA) NEGATIVE Urine Ketones NEGATIVE Urine Occult Blood SMALL H Urine Nitrite NEGATIVE Urine Bilirubin NEGATIVE Urine Urobilinogen 0.2 (NORMAL) Ur Leukocyte Esterase TRACE H Urine RBC 0-5 Urine WBC 4-5 Ur Squamous Epith Cells FEW Squamous Urine Bacteria Few Urine Mucus Few Strands Ur Microscopic Review INDICATED Urine Culture Comments INDICATED Procedures - IVC sono (time) 2012 Bedside IVC sono: IVC measures (cm) (1.86), Euvolemia PD MEDICAL DECISION MAKING - ED course Complexity details: reviewed old records, reviewed results, re-evaluated patient, considered differential, d/w patient, d/w family ED course: 81-year-old female with a history of hypertension has had a hypertensive urgency 2 nights ago and she was symptomatic at that time with a flushed face and headache. She has since resolved her symptoms she has been in to see her primary care doctor in follow-up and has been started on amlodipine at 2-1/2 mg/day. She started that today. She comes in this evening with again some elevated blood pressure with diastolics in the upper 90s. She was not sy mptomatic today. She denies any excessive salt load she denies any alcohol withdrawal she has had some constipation that has been resolved. Today in the emergency department her blood pressure is 160/60. She is encouraged to follow her blood pressures and follow-up with her primary care doctor. I have indicated the patient reasons to come back to the emergency department being elevation in the blood pressure of diastolics in the 1 20-1 40 range or symptoms to include headache nausea and altered mental status. I discussed with the patient a period of time with medication adjustments over which the blood pressure will normalize. Departure - Departure Disposition: 01 Home, Self Care Clinical Impression: Hypertension Qualifiers: Hypertension type: primary hypertension Qualified Code(s): I10 - Essential (primary) hypertension Condition: Stable Instructions: ED HTN Established Follow-Up: Pankaj Valenzuela DO [Primary Care Provider] - Comments: Today it appears you are beginning to gain control over your blood pressure and this may take a week or more with the new medication to stabilize. In the meantime should you have symptoms such as headache facial flushing nausea or altered mental status these are all reasons to return to the emergency department with elevated blood pressure. Blood pressure numbers themselves if you have a diastolic or the lower number of 120 or 140 this alone is a reason to come to the emergency department. Follow-up with your primary care doctor and expect to have normalization of your blood pressure over the next week.
[2021-05-27 21:40] VITALS: BP 144/63
== END 2021-05-27 21:43 | disposition home or self-care (01) ==
LOC: ED 19:17
DX: I10 Essential (primary) hypertension (principal)
CPT/HCPCS: 36415; 80053; 81001; 81003; 83690; 85025; 87086; 99283

== ENCOUNTER 2021-06-22 08:00 | Outpatient (CLI) | payer MEDICARE, BC | END 2021-06-22 23:59 | disposition home or self-care (01) | LOC: LAB.N 08:00 | PROVIDERS: ATTEND Family Medicine | DX: R30.0 Dysuria (principal) | CPT/HCPCS: 87077; 87086; 87181 ==

== ENCOUNTER 2021-06-27 18:55 | Outpatient (CLI) | payer MEDICARE, BC | END 2021-06-27 18:56 | disposition critical access hospital (66) | LOC: EMS 18:55 | DX: R53.83 Other fatigue (principal); R50.9 Fever, unspecified | CPT/HCPCS: A0425; A0429 ==

== ENCOUNTER 2021-06-27 19:08 | Emergency (ER) | payer MEDICARE, BC ==
[2021-06-27 20:01] LABS: BASOPHILS % (AUTO) 0.2 %; EOSINOPHILS # (AUTO) 0.5 10^3/uL (0.0-0.7); HCT - HEMATOCRIT 34.9 % (37.0-47.0); HGB - HEMOGLOBIN 11.7 g/dL (12.0-16.0); LYMPHOCYTES # (AUTO) 0.6 10^3/uL (1.5-3.5); LYMPHOCYTES % (AUTO) 4.9 %; MEAN CORPUSCULAR HEMOGLOBIN 28.9 pg (27.0-31.0); MEAN CORPUSCULAR HGB CONC 33.5 g/dL (32.0-36.0); MEAN CORPUSCULAR VOLUME 86.2 fL (81.0-99.0); MEAN PLATELET VOLUME 9.3 fL (7.9-10.8); MONOCYTES # (AUTO) 1.2 10^3/uL (0.0-1.0); MONOCYTES % (AUTO) 9.6 %; NEUTROPHILS # (AUTO) 9.9 10^3/uL (1.5-6.6); NEUTROPHILS % (AUTO) 80.9 %; PLT - PLATELET COUNT 265 10^3/uL (130-450); RED BLOOD COUNT 4.05 10^6/uL (4.20-5.40); RED CELL DISTRIBUTION WIDTH 14.3 % (12.0-15.0); WHITE BLOOD COUNT 12.2 x10^3/uL (4.8-10.8)
--- NOTE | 2021-06-27 20:04 | XRAY Report ---
PROCEDURE: Chest 1 View X-Ray INDICATIONS: Rule out respiratory process/infection source TECHNIQUE: One view of the chest was acquired. COMPARISON: 01/17/2019. FINDINGS: Surgical changes and devices: None. Lungs and pleura: No pleural effusions or pneumothorax. Increased desiccation of the lung bases. Mediastinum: Mediastinal contours appear normal. Heart size is normal. Bones and chest wall: No suspicious bony lesions. Overlying soft tissues appear unremarkable. IMPRESSION: Bibasilar opacification suspicious for multilobar pneumonia. Reviewed by: Marce Shoemaker MD, PhD on 06/27/2021 8:03 PM PDT Approved by: Marce hSoemaker MD, PhD on 06/27/2021 8:03 PM PDT Station ID: [id number]
[2021-06-27 20:05] LABS: INR 1.1 (0.8-1.2); PT - PROTHROMBIN TIME 12.5 secs (9.9-12.6)
--- NOTE | 2021-06-27 20:09 | ED Physician Documentation ---
History of Present Illness - Stated complaint Stated Complaint: FEVER - Chief complaint Chief Complaint: UTI - History obtained from History obtained from: Patient - History of Present Illness Timing: Today Pain level max: 0 Pain level now: 0 - Additonal information Additional information: 81-year-old female presents to the emergency department stating that she was recently diagnosed with a UTI, has been on Macrobid for 6 days and now has fevers and feels like the UTI has gotten worse. No cough. No congestion. Has had her Covid vaccinations. No abdominal pain. No back pain. No nausea or vomiting. Patient states that she does have an allergy to Keflex but can take Augmentin. 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 - Present Medications Home Medications: Ambulatory Orders Medication Instructions Recorded Confirmed Cetirizine HCl [Zyrtec] 10 mg PO DAILY 06/29/13 05/27/21 hydroCHLOROthiazide [Hydrodiuril] 12.5 mg PO DAILY 06/29/13 05/27/21 Losartan Potassium [Cozaar] 1 tab PO DAILY 09/28/17 05/27/21 Aspirin [[place] Aspirin] 81 mg PO DAILY 05/27/21 05/27/21 Amox/Clav 875/125 [Augmentin] 1 tab PO Q12H #20 tablet 06/27/21 Azithromycin [Zithromax] 250 mg PO DAILY #4 tablet 06/27/21 - Allergies Allergies/Adverse Reactions: Allergies Allergy/AdvReac Type Severity Reaction Status Date / Time Cephalosporins Allergy anaphylais Verified 06/27/21 19:16 codeine [Codeine] AdvReac altered LOC Verified 06/27/21 19:16 - Social History Does the pt smoke?: No Smoking Status: Never smoker Does the pt drink ETOH?: Yes Does the pt have substance abuse?: No - Immunizations Immunizations are current?: Yes - POLST Patient has POLST: No PD ED PE NORMAL - Vitals Vital signs reviewed: Yes - General General: Alert and oriented X 3, No acute distress, Well developed/nourished - HEENT HEENT: PERRL, Moist mucous membranes - Neck Neck: Supple, no meningeal sign - Cardiac Cardiac: RRR, Strong equal pulses - Respiratory Respiratory: No respiratory distress, Clear bilaterally - Abdomen Abdomen: Soft, Non tender, Non distended - Back Back: No CVA TTP, No spinal TTP - Derm Derm: Warm and dry, No rash - Extremities Extremities: No edema, No calf tenderness / cord - Neuro Neuro: Alert and oriented X 3 - Psych Psych: Normal mood, Normal affect Results - Vitals Vitals: Vital Signs - 24 hr 06/27/21 06/27/21 06/27/21 19:16 19:27 19:38 Temperature 38.8 C H Heart Rate 105 H 96 95 Respiratory 22 20 19 Rate Blood Pressure 180/71 H 133/55 H 133/55 H O2 Saturation 92 88 L 96 06/27/21 06/27/21 06/27/21 19:57 20:27 20:30 Temperature Heart Rate 97 90 91 Respiratory 15 18 23 Rate Blood Pressure 150/59 H 140/117 H 155/69 H O2 Saturation 94 95 92 06/27/21 06/27/21 06/27/21 21:00 21:30 22:03 Temperature 37.6 C 37.3 C Heart Rate 86 83 89 Respiratory 20 14 18 Rate Blood Pressure 145/54 H 136/56 H 106/88 H O2 Saturation 94 94 93 06/27/21 22:30 Temperature Heart Rate 81 Respiratory 17 Rate Blood Pressure 117/56 L O2 Saturation 92 Oxygen O2 Source Room air - Labs Labs: Laboratory Tests 06/27/21 06/27/21 06/27/21 19:45 19:45 19:45 WBC 12.2 H RBC 4.05 L Hgb 11.7 L Hct 34.9 L MCV 86.2 MCH 28.9 MCHC 33.5 RDW 14.3 Plt Count 265 MPV 9.3 Neut # (Auto) 9.9 H Lymph # (Auto) 0.6 L [place] # (Auto) 1.2 H Eos # (Auto) 0.5 Baso # (Auto) 0.0 Absolute Nucleated RBC 0.00 Nucleated RBC % 0.0 PT 12.5 INR 1.1 APTT 28.4 Sodium 127 L Potassium 3.1 L Chloride 92 L Carbon Dioxide 23 Anion Gap 12.0 BUN 12 Creatinine 0.8 Estimated GFR (MDRD) 69 L Glucose 117 H Lactic Acid Calcium 8.8 Total Bilirubin 0.7 AST 25 ALT 21 Alkaline Phosphatase 110 Total Protein 7.6 Albumin 4.1 Globulin 3.5 Albumin/Globulin Ratio 1.2 Lipase 33 Urine Color Urine Clarity Urine pH Ur Specific [place] Urine Protein Urine Glucose (UA) Urine Ketones Urine Occult Blood Urine Nitrite Urine Bilirubin Urine Urobilinogen Ur Leukocyte Esterase Urine RBC Urine WBC Urine WBC Clumps Ur Squamous Epith Cells Urine Bacteria Ur Microscopic Review Urine Culture Comments Nasal Adenovirus (PCR) Nasal B. parapertussis DNA (PCR) Nasal Coronavir 229E PCR Nasal Coronavir HKU1 PCR Nasal Coronavir NL63 PCR Nasal Coronavir OC43 PCR Nasal Enterovir/Rhinovir PCR Nasal Influenza B PCR Nasal Influenza A PCR Nasal Parainfluen 1 PCR Nasal Parainfluen 2 PCR Nasal Parainfluen 3 PCR Nasal Parainfluen 4 PCR Nasal RSV (PCR) Nasal B.pertussis DNA PCR Nasal C.pneumoniae (PCR) Favio Human Metapneumo PCR Nasal M.pneumoniae (PCR) Nasal SARS-CoV-2 (PCR) 06/27/21 06/27/21 06/27/21 19:53 20:01 20:02 WBC RBC Hgb Hct MCV MCH MCHC RDW Plt Count MPV Neut # (Auto) Lymph # (Auto) [place] # (Auto) Eos # (Auto) Baso # (Auto) Absolute Nucleated RBC Nucleated RBC % PT INR APTT Sodium Potassium Chloride Carbon Dioxide Anion Gap BUN Creatinine Estimated GFR (MDRD) Glucose Lactic Acid 0.8 Calcium Total Bilirubin AST ALT Alkaline Phosphatase Total Protein Albumin Globulin Albumin/Globulin Ratio Lipase Urine Color YELLOW Urine Clarity HAZY Urine pH 6.5 Ur Specific [place] 1.010 Urine Protein NEGATIVE Urine Glucose (UA) NEGATIVE Urine Ketones NEGATIVE Urine Occult Blood TRACE-INTA Urine Nitrite NEGATIVE Urine Bilirubin NEGATIVE Urine Urobilinogen 0.2 (NORMAL) Ur Leukocyte Esterase MODERATE H Urine RBC 0-5 Urine WBC >25 H Urine WBC Clumps PRESENT Ur Squamous Epith Cells RARE Squamous Urine Bacteria Few Ur Microscopic Review INDICATED Urine Culture Comments INDICATED Nasal Adenovirus (PCR) NOT DETECTED Nasal B. parapertussis DNA (PCR) NOT DETECTED Nasal Coronavir 229E PCR NOT DETECTED Nasal Coronavir HKU1 PCR NOT DETECTED Nasal Coronavir NL63 PCR NOT DETECTED Nasal Coronavir OC43 PCR NOT DETECTED Nasal Enterovir/Rhinovir PCR NOT DETECTED Nasal Influenza B PCR NOT DETECTED Nasal Influenza A PCR NOT DETECTED Nasal Parainfluen 1 PCR NOT DETECTED Nasal Parainfluen 2 PCR NOT DETECTED Nasal Parainfluen 3 PCR NOT DETECTED Nasal Parainfluen 4 PCR NOT DETECTED Nasal RSV (PCR) NOT DETECTED Nasal B.pertussis DNA PCR NOT DETECTED Nasal C.pneumoniae (PCR) NOT DETECTED Favio Human Metapneumo PCR NOT DETECTED Nasal M.pneumoniae (PCR) NOT DETECTED Nasal SARS-CoV-2 (PCR) NOT DETECTED - Rads (name of study) Chest x-ray Radiology: Final report received, EMP read contemporaneously, See rad report (Bibasilar opacification suspicious for multilobar pneumonia. ) PD MEDICAL DECISION MAKING - ED course Complexity details: reviewed results, re-evaluated patient, considered differential, d/w patient ED course: 81-year-old female, very well-appearing, nontoxic. Fever broke with Tylenol. No hypoxia or respiratory distress. Does have a UTI as well as possible pneumonia on chest x-ray. We will place her on Augmentin and azithromycin. First dose given here with Unasyn and azithromycin IV. Patient does not want to stay in the hospital. She would like to go home with her friend. She states she will return if she is not feeling better tomorrow or if she worsens. Currently she states she feels very well. No evidence of sepsis. Patient counseled regarding signs and symptoms for which I believe and urgent re-evaluation would be necessary. Patient with good understanding of and agreement to plan and is comfortable going home at this time This document was made in part using voice recognition software. While efforts are made to proofread this document, sound alike and grammatical errors may occur. Departure - Departure Disposition: Home, Self Care Clinical Impression: UTI (urinary tract infection) Qualifiers: Urinary tract infection type: acute cystitis Hematuria presence: without hematuria Qualified Code(s): N30.00 - Acute cystitis without hematuria Pneumonia Qualifiers: Pneumonia type: due to unspecified organism Laterality: bilateral Lung location: lower lobe of lung Qualified Code(s): J18.9 - Pneumonia, unspecified organism Fever Qualifiers: Fever type: unspecified Qualified Code(s): R50.9 - Fever, unspecified Condition: Good Instructions: ED Pneumonia Adult, ED UTI Cystitis Female Follow-Up: Pankaj Valenzuela DO [Primary Care Provider] - Within 1 week Prescriptions: Amox/Clav 875/125 [Augmentin] 1 tab PO Q12H #20 tablet Azithromycin [Zithromax] 250 mg PO DAILY #4 tablet Comments: Take all antibiotics until gone. Your prescriptions were sent to [facility] in [place]. Drink plenty of fluids at home. We did discuss staying in the hospital tonight, but you have elected to go home at this time. You are welcome to return at any time if you worsen. Discharge Date/Time: 06/27/21 22:56
[2021-06-27 20:12] LABS: PARTIAL THROMBOPLASTIN TIME 28.4 secs (24.9-33.3)
[2021-06-27 20:14] LABS: ALBUMIN 4.1 g/dL (3.2-5.5); ALBUMIN/GLOBULIN RATIO 1.2 (1.0-2.2); BILIRUBIN,TOTAL 0.7 mg/dL (0.2-1.0); CALCIUM 8.8 mg/dL (8.5-10.3); CREATININE 0.8 mg/dL (0.4-1.0); POTASSIUM 3.1 mmol/L (3.5-5.0); TOTAL PROTEIN 7.6 g/dL (6.7-8.2)
[2021-06-27 20:17] LABS: BILIRUBIN,URINE NEGATIVE (NEGATIVE); GLUCOSE, URINE (UA) NEGATIVE (NEGATIVE); KETONES,URINE (UA) NEGATIVE (NEGATIVE); LEUKOCYTE ESTERASE, URINE MODERATE (NEGATIVE); NITRITE,URINE NEGATIVE (NEGATIVE); OCCULT BLOOD,URINE TRACE-INTA (NEGATIVE); PH,URINE 6.5 PH (5.0-7.5); PROTEIN,URINE NEGATIVE (NEGATIVE); UROBILINOGEN,URINE 0.2 (NORMAL) E.U./dL (NORMAL)
[2021-06-27] MEDS ORDERED: ACETAMINOPHEN 325 MG TABLET PO STA (20:21)
[2021-06-27] MEDS ORDERED: SODIUM CHLORIDE 0.9% 1,000 ML IV STA ×2 (20:21)
[2021-06-27 20:29] LABS: CLARITY,URINE HAZY (CLEAR)
[2021-06-27 20:30] LABS: BACTERIA,URINE Few /HPF (None Seen); RBC,URINE 0-5 /HPF (0-5); SQUAMOUS EPITHELIAL CELL,UR RARE Squamous (<= Few); WBC CLUMPS,URINE PRESENT; WBC,URINE >25 /HPF (0-5)
[2021-06-27 21:10] LABS: B. PARAPERTUSSIS- RESP PCR PAN NOT DETECTED; B. PERTUSSIS- RESP PCR PANEL NOT DETECTED; C. PNEUMONIAE- RESP PCR PANEL NOT DETECTED; CORONAVIRUS 229E-RESP PCR NOT DETECTED; CORONAVIRUS HKU1-RESP PCR NOT DETECTED; CORONAVIRUS NL63-RESP PCR NOT DETECTED; CORONAVIRUS OC43-RESP PCR NOT DETECTED; HUMAN METAPNEUMOVIRUS NOT DETECTED; INFLUENZA A- RESP PCR PANEL NOT DETECTED; INFLUENZA B - RESP PCR PANEL NOT DETECTED; M. PNEUMONIAE- RESP PCR PANEL NOT DETECTED; PARAINFLUENZA VIRUS 1 NOT DETECTED; PARAINFLUENZA VIRUS 2 NOT DETECTED; PARAINFLUENZA VIRUS 3 NOT DETECTED; PARAINFLUENZA VIRUS 4 NOT DETECTED; RHINOVIRUS/ENTEROVIRUS NOT DETECTED; RSV- RESP PCR PANEL NOT DETECTED; SARS-CoV-2 -RESP PCR PANEL NOT DETECTED
[2021-06-27] MEDS ORDERED: AMPICILLIN/SULBACTAM 3 GM in SODIUM CHLORIDE 0.9% MINIBAG 100 ML IV STA (21:14)
[2021-06-27] MEDS ORDERED: AZITHROMYCIN INJ 500 MG in SODIUM CHLORIDE 0.9% 250 ML IV STA (21:14)
[2021-06-27 22:32] VITALS: BP 117/56
== END 2021-06-27 22:56 | disposition home or self-care (01) ==
LOC: EDUNIT# → EDBD → ED 19:08
DX: N30.00 Acute cystitis without hematuria (principal); J18.9 Pneumonia, unspecified organism; I10 Essential (primary) hypertension; Z20.822 Contact with and (suspected) exposure to COVID-19
CPT/HCPCS: 36415; 71045; 80053; 81001; 83605; 83690; 85025; 85610; 85730; 87040; 87077; 87086; 87181; 87631; 96365; 96368; 99284; A9270; 0202U; 81003

== ENCOUNTER 2021-07-07 13:30 | Outpatient (CLI) | payer MEDICARE, BC ==
--- NOTE | 2021-07-07 14:41 | XRAY Report ---
PROCEDURE: Chest 2 View X-Ray INDICATIONS: PNEUMONIA TECHNIQUE: Two views of the chest were acquired. COMPARISON: 06/27/2021 FINDINGS: Surgical changes and devices: None. Lungs and pleura: No pleural effusions or pneumothorax. Improved aeration of both lung bases and p erihilar region since the prior study. No definite new focal consolidation is seen. Mediastinum: Mediastinal contours appear normal. Heart size is normal. Bones and chest wall: No suspicious bony lesions. Overlying soft tissues appear unremarkable. IMPRESSION: Improved aeration of both lung bases. No new focal consolidation since 06/27/2021 Reviewed by: Avinash Georges MD on 07/07/2021 2:39 PM PDT Approved by: Avinash Georges MD on 07/07/2021 2:39 PM PDT Station ID: [id number]
== END 2021-07-07 13:31 | disposition home or self-care (01) ==
LOC: DI.N 13:30
PROVIDERS: ATTEND Family Medicine
DX: J18.9 Pneumonia, unspecified organism (principal); E87.1 Hypo-osmolality and hyponatremia
CPT/HCPCS: 36415; 80048

== ENCOUNTER 2021-07-07 13:36 | Outpatient (CLI) | payer MEDICARE, BC ==
[2021-07-07 19:12] LABS: CALCIUM 9.2 mg/dL (8.5-10.3); CREATININE 0.8 mg/dL (0.4-1.0); POTASSIUM 3.4 mmol/L (3.5-5.0)
== END 2021-07-07 13:37 | disposition home or self-care (01) ==
LOC: LAB.N 13:36
PROVIDERS: ATTEND Family Medicine
DX: J18.9 Pneumonia, unspecified organism (principal); E87.1 Hypo-osmolality and hyponatremia
CPT/HCPCS: 36415; 80048

== ENCOUNTER 2021-07-15 09:33 | Outpatient (CLI) | payer MEDICARE, BC ==
[2021-07-15 13:04] LABS: CALCIUM 9.2 mg/dL (8.5-10.3); CREATININE 0.8 mg/dL (0.4-1.0)
== END 2021-07-15 09:34 | disposition home or self-care (01) ==
LOC: LAB.N 09:33
PROVIDERS: ATTEND Family Medicine
DX: E87.1 Hypo-osmolality and hyponatremia (principal)
CPT/HCPCS: 36415; 80048

== ENCOUNTER 2022-04-18 08:00 | Outpatient (CLI) | payer MEDICARE, BC ==
--- NOTE | 2022-04-18 10:53 | XRAY Report ---
PROCEDURE: Chest 2 View X-Ray INDICATIONS: DYSPNEA ON EXERTION TECHNIQUE: 2 view(s) of the chest. COMPARISON: 06/27/2021 chest x-ray FINDINGS: Surgical changes and devices: None. Lungs and pleura: No pleural effusions or pneumothorax. Mild patchy opacity within the bilateral per ihilar locations and lung bases. Mediastinum: Mediastinal contours are normal. Heart size is normal. Bones and chest wall: No suspicious bony abnormalities. Soft tissues appear unremarkable. IMPRESSION: Mild atypical pneumonia. Reviewed by: Ronny Guajardo MD on 04/18/2022 10:51 AM PDT Approved by: Ronny Guajardo MD on 04/18/2022 10:51 AM PDT Station ID: [id number]
== END 2022-04-18 23:59 | disposition home or self-care (01) ==
LOC: DI.N 08:00
PROVIDERS: ATTEND Family Medicine
DX: J18.9 Pneumonia, unspecified organism (principal); U07.1 COVID-19
CPT/HCPCS: 36415; 71046; 80048; 83880; 85027; U0004

== ENCOUNTER 2022-04-18 09:54 | Outpatient (CLI) | payer MEDICARE, BC | END 2022-04-18 09:55 | disposition home or self-care (01) | LOC: LAB.N 09:54 | PROVIDERS: ATTEND Family Medicine | DX: Z53.9 Procedure and treatment not carried out, unspecified reason (principal) ==

== ENCOUNTER 2022-04-18 10:00 | Outpatient (CLI) | payer MEDICARE, BC ==
[2022-04-18 12:25] LABS: HCT - HEMATOCRIT 35.9 % (37.0-47.0); HGB - HEMOGLOBIN 12.2 g/dL (12.0-16.0); MEAN CORPUSCULAR VOLUME 82.5 fL (81.0-99.0); MEAN PLATELET VOLUME 9.8 fL (7.9-10.8); RED BLOOD COUNT 4.35 10^6/uL (4.20-5.40); RED CELL DISTRIBUTION WIDTH 14.7 % (12.0-15.0); WHITE BLOOD COUNT 4.6 x10^3/uL (4.8-10.8)
[2022-04-18 12:31] LABS: CALCIUM 9.8 mg/dL (8.5-10.3); CREATININE 0.9 mg/dL (0.4-1.0); POTASSIUM 3.7 mmol/L (3.5-5.0)
== END 2022-04-18 10:01 | disposition home or self-care (01) ==
LOC: LAB.N 10:00
PROVIDERS: ATTEND Family Medicine
DX: U07.1 COVID-19 (principal)
CPT/HCPCS: 36415; 80048; 83880; 85027; U0004

== ENCOUNTER 2022-05-22 08:00 | Outpatient (CLI) | payer MEDICARE, BC | END 2022-05-22 23:59 | disposition home or self-care (01) | LOC: LAB.N 08:00 | PROVIDERS: ATTEND Physician Assistant Medical | DX: N30.00 Acute cystitis without hematuria (principal) | CPT/HCPCS: 87077; 87086; 87181 ==